=== PATIENT | male | born 1940 | race Caucasian/White ===

== ENCOUNTER → 2016-11-13 | Outpatient (CLI) | payer MEDICARE, OTHER | END | disposition home or self-care (01) | LOC: CVU 11:35 | PROVIDERS: ATTEND Internal Medicine Cardiovascular Disease | DX: I65.23 Occlusion and stenosis of bilateral carotid arteries (principal); R93.1 Abnormal findings on diagnostic imaging of heart and coronary circulation | CPT/HCPCS: 93880 ==

== ENCOUNTER 2019-09-03 12:56 | Emergency (ER) | payer MEDICARE, OTHER ==
[~2019-09-03] VITALS: Ht 175.3 cm; Wt 65.0 kg
[~2019-09-03 12:56] MED LIST: HYDR25SU21 PO; HYDR25TA6 PO; MELO15TA24 PO; SIMV20TA19 PO
--- NOTE | 2019-09-03 13:28 | NUR ---
FIRST CONTACT WITH PT. PT STATES "ATRIAL FLUTTER, HEART RATE AT 145" SINCE 0830. PT TOOK DILTIAZEM 120 MG AT 0900. PT DENIES CP, SOB. PT'S AOX4. RESPS EVEN AND UNLABROED. ALL MONITORS IN PLACE. CALL LIGHT WITHIN REACH. EDMD AT BEDSIDE TO EVALUATE AT THIS TIME.
--- NOTE | 2019-09-03 13:28 | NUR ---
PIV EST WITH NO COMPLICATIONS.
[2019-09-03] MEDS ORDERED: DILTIAZEM 5 MG/ML, 5ML IV ONE (13:30)
[2019-09-03] MEDS ORDERED: DILTIAZEM 5 MG/ML, 5ML ONE (13:34)
--- NOTE | 2019-09-03 13:41 | NUR ---
PT MEDICATED PER EMAR. PT TOLERATED WELL.
[2019-09-03 14:01] LABS: MEAN CORPUSCULAR HEMOGLOBIN 31.2 pg (27.5-34.5); MEAN CORPUSCULAR HGB CONC 33.4 g/dL (33.2-36.2); MEAN CORPUSCULAR VOLUME 93.6 fL (81-97); MEAN PLATELET VOLUME 8.6 fL (7.4-10.4); PLATELET COUNT 232 x10^3/uL (130-400); RED CELL DISTRIBUTION WIDTH 13.4 % (9.4-14.8)
[2019-09-03 14:09] LABS: ALBUMIN 3.7 g/dL (3.4-5.0); ANION GAP 5 mmol/L (5-15); CALCIUM 8.9 mg/dL (8.5-10.1); CHLORIDE 108 mmol/L (98-107)
[2019-09-03 14:24] LABS: MD YES
[2019-09-03 14:29] LABS: <PLATELET ESTIMATE> ADEQUATE; <RBC MORPHOLOGY> NORMAL; LYMPH#(MANUAL) 0.82 x10^3/uL (1-3.4); LYMPHS% (MANUAL) 9 % (22-44); MONOS#(MANUAL) 0.82 x10^3/uL (0.3-2.7); MONOS% (MANUAL) 9 % (2-9); SEG#(MANUAL) 7.46 x10^3/uL (1.8-6.8); SEGS% (MANUAL) 82 % (42-75)
[2019-09-03 14:30] LABS: <PLT MORPHOLOGY> NORMAL PLT MORPH
--- NOTE | 2019-09-03 14:50 | NUR ---
EDMD AND PT SIGNED ON CONSENT FORM AT THIS TIME.
[2019-09-03] MEDS ORDERED: ETOMIDATE 20 MG/10 ML IVPush ONE (15:30)
[2019-09-03] MEDS ORDERED: FENTANYL PF 100 MCG/2ML IVPush ONE (15:30)
[2019-09-03] MEDS ORDERED: FENTANYL PF 100 MCG/2ML ONE (15:39)
[2019-09-03] MEDS ORDERED: ETOMIDATE 20 MG/10 ML ONE (15:39)
[2019-09-03] MEDS ORDERED: ONDANSETRON 2MG/ML, 2ML ONE (15:56)
--- NOTE | 2019-09-03 16:07 | NUR ---
CARDIOVERSION DONE AT BEDSIDE BY LESLY BASSETT. SEE PAPER CHART.
--- NOTE | 2019-09-03 16:35 | NUR ---
PT IS STILL A LITLE BIT DROWSY AT THIS TIME. PER PT'S PT NEEDS REST A LITTLE BIT LONGER.
--- NOTE | 2019-09-03 16:52 | NUR ---
PT C/O NAUSEA BUT PT REFUSED MEDS. PT REQUESTING SOME SNACKS. EDMD OK'D TO GIVE SOME FOOD. SNACKS PROVIDED AT THIS TIME.
[2019-09-03] MEDS ORDERED: ONDANSETRON 2MG/ML, 2ML IVPush ONE ×2 (17:00)
--- NOTE | 2019-09-03 17:26 | NUR ---
pt resting in [facility]. pt states"i need more time to go home." pt's aox4. resps even and unlabored. vss.
[2019-09-03 18:05] VITALS: BP 114/66
--- NOTE | 2019-09-03 18:06 | NUR ---
Patient given discharge instructions and they have confirmed that they understand the instructions.
== END 2019-09-03 18:07 | disposition home or self-care (01) ==
LOC: ED 18:00
DX: I48.92 Unspecified atrial flutter (principal)
CPT/HCPCS: 36415; 71045; 80048; 82040; 85025; 92960; 93005; 96374; 96375; 99285; J2405